=== PATIENT | female | born 1970 | race Caucasian/White ===

== ENCOUNTER → 2016-06-06 | Outpatient (CLI) | payer OTHER ==
[~2016-06-06] MED LIST: ATV/1 PO; ATV1 PO; CLIN300C2 PO; CYCL5TAB PO; EPP3/2 IM; IBUP-103 PO; RANI150T3 PO; SULF800T23 PO
[2016-06-06 09:37] LABS: BASO % 0.4 %; BASO ABS # 0.03 K/uL (0-0.2); COMPLETE YES; EOS % 4.8 %; HEMATOCRIT 40.8 % (37-47); IG% 0.3 %; LYMPH % 32.9 %; LYMPH ABS # 2.39 K/uL (1.2-3.4); MEAN CELL VOLUME 98.6 fL (80-100); MEAN CORPUSCULAR HEMOGLOBIN 33.6 pg (25-34); MEAN CORPUSCULAR HGB CONC 34.1 g/dl (32-36); MEAN PLATELET VOLUME 9.8 fL (7.4-10.4); MONO % 8.8 %; NEUT % 52.8 %; PLATELET COUNT 323 K/uL (130-400); RED BLOOD COUNT 4.14 M/uL (4.2-5.4); WHITE BLOOD COUNT 7.26 K/uL (4.8-10.8)
[2016-06-06 10:06] LABS: ALT/SGPT 31 U/L (12-78); BLOOD UREA NITROGEN 11 mg/dl (7-18); BUN/CREATININE RATIO 15.9 (10-20); CALCIUM 8.9 mg/dl (8.5-10.1); CARBON DIOXIDE 23 mmol/L (21-32); CHLORIDE 108 mmol/L (98-107); CHOLESTEROL 219 mg/dl (0-200); GLUCOSE 102 mg/dl (70-99); POTASSIUM 3.9 mmol/L (3.5-5.1); SODIUM 142 mmol/L (136-145); TRIGLYCERIDES 108 mg/dl (0-150); VERY LOW DENSITY LIPOPROT CALC 22 mg/dl
[2016-06-06 10:16] LABS: ALB/GLOB RATIO 1.2 (0.9-2); ALKALINE PHOSPHATASE 119 U/L (45-117); AST/SGOT 18 U/L (15-37); CHOLESTEROL/HDL RATIO 5.8; HDL CHOLESTEROL 38 mg/dl; LDL CHOLESTEROL CALCULATED 159 mg/dl
[2016-06-10 16:35] LABS: IGA SERUM 126 mg/dL (81-463); TIS TRANS IGA 1 U/mL (<4)
== END | disposition home or self-care (01) ==
LOC: C.LAB 08:40
PROVIDERS: ATTEND Internal Medicine
DX: R10.9 Unspecified abdominal pain (principal); R06.02 Shortness of breath; R19.4 Change in bowel habit

== ENCOUNTER 2016-09-24 20:15 | Emergency (ER) | payer OTHER ==
[~2016-09-24] VITALS: Ht 170.2 cm; Wt 87.0 kg
[~2016-09-24 20:15] MED LIST changes: -ATV1 PO; -CYCL5TAB PO; -RANI150T3 PO; -SULF800T23 PO
[2016-09-24 20:21] VITALS: TEMP 37; Ht 170.2 cm; Wt 87.0 kg
[2016-09-24] MEDS ORDERED: XYLOCAINE 1%/SOD BICARB 20 ML VIAL INFIL ONE (20:45)
--- NOTE | 2016-09-24 20:58 | EMERGENCY ROOM VISIT NOTE ---
ED Visit Note First contact with patient: 20:30 CHIEF COMPLAINT: Infection of the left breast HISTORY OF PRESENT ILLNESS: This 45-year-old female patient presents to the emergency department ambulatory to the left lateral breast after they noticed a hard, red, tender area take. It is slowly getting larger, more painful and tender. No fever, chills, or loss of appetite. There has been no drainage from the area. The patient states that she was pushing herself up with her arm which gave out (which is not uncommon for her) and she fell onto the bed on her left breast. This happened 3 weeks ago. She states she felt a pinching and burning sensation at that time. She states that after that she noticed a small opening in the center of an area of redness. She was seen in this emergency department and started on clindamycin. She states that the area of redness seems to be worsening. They rate the pain as sharp and 7/10. Tetanus shot is up to date. They have tried clindamycin. The patient is not diabetic. The patient has no history of subcutaneous abscesses. REVIEW OF SYSTEMS: A 6 system review of systems was completed with positives and pertinent negatives listed in the HPI. ALLERGIES: Penicillin-anaphylaxis MEDICATIONS: Lorazepam, EpiPen, ibuprofen PMH: Anxiety SOCIAL HISTORY: The patient lives locally with family PHYSICAL EXAM: Vital Signs: Reviewed Nurse's notes, vital signs stable. GENERAL : This is a 45-year-old female, no acute distress, non toxic in appearance, well -developed well-nourished. SKIN: There is an erythematous indurated area to the left breast which measures about 3 cm in diameter. There is a central area of necrosis. There is no significant fluctuance. There is a zone of inflammation around it but no lymphangitis. Capillary refill less than 2 seconds. MUSCULOSKELETAL: There is no limitation of the range of motion of the arms. EMERGENCY DEPARTMENT COURSE: I examined the patient. After saline and Betadine cleansing and 3 mL of 1% buffered lidocaine anesthesia, the abscess was incised with a number 11 scalpel blade. A small amount of purulent material was released with more expressed by pressure. A swab was obtained for culture. There is no significant deep abscess cavity to pack. The area was cleaned with sterile saline and dressed with bacitracin and a bulky bandage. The patient tolerated the procedure well. The patient was discharged home in stable condition. The patient will be switched to Bactrim twice a day. A culture is pending which will help in appropriate antibiotic choice. The patient does have an anaphylactic reaction to penicillins and therefore penicillins and cephalosporins will be avoided. The patient has an appointment with her family doctor tomorrow and should keep this appointment for recheck and further evaluation and management. She was given a take-home pack of pain medication. She should return to the ER with any worsening symptoms. Otherwise, she should follow-up with her family doctor. Medication Reconciliation: I attest that I have personally reviewed the patient' s current medication list. Problem List Medical Problems: (1) Anxiety Status: Chronic Surgical Problems: (1) S/P cholecystectomy Status: Resolved (2) S/P tubal ligation Status: Resolved Current/Historical Medications Scheduled Clindamycin Hcl (Cleocin), 300 MG PO QID Sulfa/Trimethoprim (Bactrim Ds 800MG/160MG), 1 TAB PO BID Scheduled PRN Epinephrine (Epipen), 0.3 MG IM UD PRN for ALLERGIC REACTION Ibuprofen Tab (Advil), 400 MG PO Q4 PRN for Pain or Fever Lorazepam (Ativan), 1 MG PO DAILY PRN for Anxiety Allergies Coded Allergies: Amoxicillin (Verified Allergy, Severe, anaphylactic shock, 09/24/16) Penicillins (Verified Allergy, Severe, ANAPHYLAXIS, 09/24/16) Vital Signs Date Time Temp Pulse Resp B/P (MAP) Pulse Ox O2 Delivery O2 Flow Rate FiO2 09/24/16 22:03 89 18 156/80 96 09/24/16 20:21 37.0 88 16 155/96 96 Room Air Medications Administered Medications (Trade) Dose Ordered Sig/Elena Route Start Time Stop Time Status Last Admin Dose Admin Trimethoprim/ Sulfamethoxazole (Sulfameth/ Trimeth Ds 800/ 160MG Home Pack) 1 homepack UD ONCE PO 09/24/16 21:45 09/24/16 21:46 DC 09/24/16 21:45 1 HOMEPACK Oxycodone/ Acetaminophen (Percocet 5/ 325MG Home Pack) 1 homepack UD ONCE PO 09/24/16 21:45 09/24/16 21:46 DC 09/24/16 21:45 1 HOMEPACK Departure Information Impression Primary Impression: Breast abscess Dispostion Home / Self-Care Condition GOOD Prescriptions Sulfa/Trimethoprim (Bactrim Ds 800MG/160MG) Tab 1 TAB PO BID for 10 Days, #20 TAB Prov: Kasie Hutson PA-C 09/24/16 Referrals Pro,Stew Figueredo M.D. (PCP) Patient Instructions Drainage Abscess, My [facility] Additional Instructions Motrin 600 mg every 6-8 hours for moderate pain Percocet 1-2 tablet every 4-6 hours as needed for worse pain. No driving or alcohol use with Percocet and do not take with Tylenol. Stop the clindamycin and start the Bactrim every 12 hours for 10 days The culture results should be back in 48 hours; we will contact you if the results indicate the need for change in treatment Keep your appointment with your family doctor tomorrow for recheck. This will need to be followed to complete resolution. Return with any worsening pain, redness, swelling, warmth, fevers.
[2016-09-24] MEDS ORDERED: SULF800T23 PO (21:40)
[2016-09-24] MEDS ORDERED: SEPTRA DS HOME PACK 1 EA VIAL PO ONE (21:45)
[2016-09-24] MEDS ORDERED: PERCOCET HOME PACK PO ONE (21:45)
[2016-09-24 22:03] VITALS: BP 156/80; PULSE 89; O2SAT 96
== END 2016-09-24 22:05 | disposition home or self-care (01) ==
LOC: C.EDB 20:16 → C.EDC 22:05
DX: N61.1 Abscess of the breast and nipple (principal); F41.9 Anxiety disorder, unspecified; Z79.899 Other long term (current) drug therapy

== ENCOUNTER → 2017-07-01 | Outpatient (CLI) | payer BC ==
[~2017-07-01] MED LIST changes: -CLIN300C2 PO
== END | disposition home or self-care (01) ==
LOC: C.LABSPEC 16:27
PROVIDERS: ATTEND Physician Assistant
DX: R39.9 Unspecified symptoms and signs involving the genitourinary system (principal)